=== PATIENT | female | born 1965 | race Two or more races ===

== ENCOUNTER → 2022-08-02 08:59 | Outpatient (BNVA) | payer BC, OTHER, SELFPAY | PROVIDERS: PCP Internal Medicine; Visit Provider Dietitian, Registered | DX: E11.9 Type 2 diabetes mellitus without complications (principal) | CPT/HCPCS: 97802 ==

== ENCOUNTER → 2022-11-17 09:51 | Outpatient (BNVA) | payer BC, OTHER, SELFPAY | PROVIDERS: PCP Internal Medicine; Visit Provider Dietitian, Registered | DX: E11.9 Type 2 diabetes mellitus without complications (principal); Z71.3 Dietary counseling and surveillance | CPT/HCPCS: 97802 ==

== ENCOUNTER → 2023-01-09 09:38 | Outpatient (BNVA) | payer BC, OTHER, SELFPAY | PROVIDERS: PCP Internal Medicine; Visit Provider Dietitian, Registered | DX: E11.9 Type 2 diabetes mellitus without complications (principal); E66.9 Obesity, unspecified; Z68.31 Body mass index [BMI] 31.0-31.9, adult; Z71.3 Dietary counseling and surveillance | CPT/HCPCS: 97803 ==

== ENCOUNTER 2023-05-08 09:52 | Outpatient (AMB) | payer BC, OTHER, SELFPAY ==
--- NOTE | 2023-05-08 10:01 | A.OFFVIS_ITS ---
Intake VS Expanded 05/08/23 10:02 Height 5 ft 4 in Weight 184 lb 8.43 oz BMI 31.7 Intake Visit Reasons: dm Medication List - Last Reconciled 05/08/[address], LDN dulaglutide (Trulicity) 1.5 mg subcut QWEEK glyburide 5 mg PO DAILY metformin 1,000 mg PO BID HPI Nutrition Presentation Details Pt presents for MNT for T2DM Pt reports monitoring wt at home and wt at 179 lbs today. Pt reported taking Trulicity 1.5 mg weekly, metformin 1000 mg twice/d, glyburide 5mg/d Breakfast: toast and coffee Diet: reports having fast meal at lunch: consisting of muffin or bread, not including protein Dinner: rice/beans/protein beverages: coffee 16 oz/d, reports nothing else to drink in the day water 6 oz physical activity : sedentary (none additional to daily life activities) ETOH/SMOKING denies BG record: BG fluctuating between 62-213 in past month Treats low BG by having juice ,not resting to confirm improvement Most Recent Diabetes Results: No Data to Display Assessment & Plan Assessment & Plan (1) T2DM (type 2 diabetes mellitus): Code(s): E11.9 - Type 2 diabetes mellitus without complications Plan Educate Pt on [id number] lucy meal plan ? Used wt : 84 kg Est kcal as per MSJ: 1708 (40% carb, 30% fat/prot) Est fluid needs: 2102 ml/d (25 ml/kg bw) Rec fiber: increase to 8-10 g per day and gradually increase to 25 g/d as tolerated Rec Na: < 2000 mg /d Educate patient on: (R= Reviewed, V = verbalizes understanding N/R= Needs review N/A= not applicable) * Food sources of carbohydrates and serving adequate serving sizes : V * Difference between complex carbohydrates and simple carbohydrates, role of fiber: V * Differences between fats (MUFA/PUFA/saturated fats, trans fats) and food sources of various fats: V * Food sources of sodium and salt and healthy modifications for heart health and kidney health: V * How to interpret food labels: V (serving size, calories/protein/fiber * Healthy Plate method concept: V * Physical activity: benefits and precaution: V Patient Instructions: Engage in exercise routine: 30 minutes walking/marching/chair exercises 3 days a week, increase in water 2- 16 oz bottles daily HAve a meal replacement at lunch reducing on empty calorie foods treat low blood sugar by following rule of 15 (15 g of carbs = 4 ounces of juice or 1 tbsp of sugar or 3-4 glucose tablets: wait 15 minutes and then recheck your blood sugar. Repeat treatment if blood sugar continues below 70. Contact your doctor to notify low blood sugar events for further assessment Coding Level of Care Code Nutr Indiv Subseq (33000) Diagnoses T2DM (type 2 diabetes mellitus) E11.9 Time Spent (min) 30
[2023-05-08 10:02] VITALS: BMI 31.7
== END 2023-05-08 11:10 | disposition home or self-care (01) ==
PROVIDERS: PCP Internal Medicine; Visit Provider Dietitian, Registered
DX: E11.9 Type 2 diabetes mellitus without complications (principal)

== ENCOUNTER → 2023-05-08 09:52 | Outpatient (BNVA) | payer BC, OTHER, SELFPAY | PROVIDERS: PCP Internal Medicine; Visit Provider Dietitian, Registered | DX: E11.9 Type 2 diabetes mellitus without complications (principal); Z79.84 Long term (current) use of oral hypoglycemic drugs; Z71.3 Dietary counseling and surveillance | CPT/HCPCS: 97803 ==